=== PATIENT | female | born 1935 | race Hispanic/Latino ===

== ENCOUNTER 2017-07-21 18:14 | Inpatient (IN) | payer MEDICARE, MEDICAID ==
[2017-07-21] MEDS ORDERED: Ondansetron ODT 4 MG TAB PO PRN (19:48)
[2017-07-21] MEDS ORDERED: Acetaminophen 325 MG TAB PO PRN (19:48)
[2017-07-21] MEDS ORDERED: Sodium Chloride 0.9% 1,000 ML IV SCH (20:00)
[2017-07-21 21:12] LABS: #Eosinphils 0.3 thou/uL (0.0-0.7); #Lymphocytes 2.2 thou/uL (1.20-3.40); #Monocytes 0.6 thou/uL (0.11-0.59); #Neutrophils 6.5 thou/uL (1.40-6.50); %Basophils 0.4 % (0.0-1.0); %Eosinophils 2.9 % (0.0-10.0); %Lymphocytes 22.5 % (21.0-51.0); %Monocytes 6.4 % (0.0-10.0); Hematocrit 26.1 % (36.0-47.0); Mean Platelet Volume 7.2 fL (7.4-10.4); Red Blood Cell (RBC) Count 3.21 mill/uL (4.20-5.40); White Blood Cell (WBC) Count 9.6 thou/uL (4.8-10.8)
[2017-07-21 21:38] LABS: ALT (SGPT) 12 U/L (8-55); AST (SGOT) 19 U/L (5-34); Alkaline Phosphatase 92 U/L (40-150); Anion Gap 15 mmol/L (10-20); BUN (Urea Nitrogen) 33 mg/dL (9.8-20.1); Bilirubin, Total 0.2 mg/dL (0.2-1.2); Calc. Creatinine Clearance 34 mL/min (70-130); Calcium 9.1 mg/dL (7.8-10.44); Carbon Dioxide 19 mmol/L (23-31); Chloride 106 mmol/L (98-107); Estimated GFR-MDRD 47; Globulin 3.9 g/dL (2.4-3.5); Iron 29 ug/dL (50-170); Iron 31 ug/dL (50-170); Protein, Total 7.6 g/dL (6.0-8.3)
--- NOTE | 2017-07-21 22:05 | RAD ---
SINGLE VIEW OF THE ABDOMEN: Comparison: None. History: Acute GI bleed with abdominal tenderness. FINDINGS: Single view of the abdomen shows a nonspecific, nonobstructed bowel gas pattern. Air is seen in the rectum. No suspicious calcifications are present. IMPRESSION: Unremarkable exam. POS: [facility]
[2017-07-21] MEDS: Sodium Chloride 0.9% 1,000 ML IV SCH (22:56)
--- NOTE | 2017-07-22 05:17 | HP-2 ---
CODE STATUS: FULL. PRIMARY CARE PHYSICIAN: Dr. Anthony Galicia ATTENDING: Dr. Pili Plasencia RESIDENT: Candy Valerio D.O. HISTORIAN: Dkfqzcyz-qi-vye, daughter, and son. CHIEF COMPLAINT: Weakness, bleeding per rectum. HISTORY OF PRESENT ILLNESS: The patient is an 81-year-old female with past medical history of hyper tension and dementia who presented to the [facility] clinic for bright red blood per rectum for the past 1 -2 days. The patient is taken care of by her plhrjuoi-vd-gsd. Rratjlgt-jx-idq reports melena in th e past and passing blood clots as well. Per zknhsfde-yj-wup, the patient has seemed more weak over the last week. Never has had a colonoscopy. Family reports poor oral intake and weight loss of 30- 40 pounds over the past 2 years. PAST MEDICAL HISTORY: 1. Dementia. 2. Aortic sclerosis. 3. Hypertension. PAST SURGICAL HISTORY: 1. . 2. Bilateral cataract surgery. ALLERGIES: No known drug allergies. MEDICATIONS: 1. Lisinopril 5 mg daily. 2. Zoloft 25 mg daily. 3. Ultram 50 mg q.6 h. p.r.n. 4. Seroquel 50 mg at bedtime. 5. Acidophilus 100 mg daily. FAMILY HISTORY: Daughter from cervical, gastric and liver cancer. SOCIAL HISTORY: Denies tobacco, alcohol, and drug use. The patient lives with fxyjmmld-gv-xzs. REVIEW OF SYSTEMS: Review of system is limited due to the dementia. This is obtained by the dacaio er-in-law. GENERAL: Reports decreased weight and decreased appetite. No fever, chills, increased fatigue. RESPIRATORY: Does report recent cough this morning. CARDIOVASCULAR: Jwokoomb-ml-zrs denies the patient reporting chest pain. GI: Denies nausea, vomiting, diarrhea or constipation, last BM yesterday per azfxydbr-eh-kgx. : The patient is chronically incontinent. NEURO: Positive for generalized weakness. PHYSICAL EXAMINATION: VITAL SIGNS: Blood pressure 134/70, pulse 75, respiratory rate 16, T-max 98.4, pulse ox 100% on nini m air, current weight 55.39 kilograms. GENERAL: The patient is alert and oriented x2, no acute distress. She is confused, but at baseline per family. EYES: PERRLA, EOMI. ENT: Oropharynx within normal limits. Mucous membranes with pallor. CARDIOVASCULAR: Regular rate and rhythm with a chronic systolic murmur. Radial pulses 2+, pedal pu lses 2+. RESPIRATORY: Normal effort, no retractions. LUNGS: Clear to auscultation bilaterally. SKIN: Warm and dry without tenting. ABDOMEN: Soft. It is tender throughout, especially in the left upper quadrant. Hypoactive bowel s ounds throughout. EXTREMITIES: No clubbing, cyanosis or edema. MUSCULOSKELETAL: Structure within normal limits. NEUROLOGIC: No focal deficits. PSYCHIATRIC: Confused, but consistent with diagnosis of dementia. LABORATORY DATA: CBC, white blood cell count 9.6, hemoglobin 8.5, hematocrit 26.1, platelets 281, M CV 81.1. Chemistries: Sodium 136, potassium 4.2, chloride 106, CO2 19, BUN 33, creatinine 1.11, glucose 147, calcium 9.1, total protein 7.6, albumin 3.7, AST 19, ALT 12, alkaline phosphatase 92, total bilirub in 0.2. Iron studies: Iron 31, TIBC 265%, saturation is 12 and ferritin is pending. ASSESSMENT AND PLAN: 1. Gastrointestinal bleed, likely lower gastrointestinal bleed from history, but not sure. Protoni x ordered. Repeat CBC, CMP in the morning. Ferritin pending, the patient with abdominal tenderness . No concern for diverticulitis with normal white count, but will order a KUB to evaluate. FOBT po sitive in the clinic. Consult GI for possible colonoscopy. 2. Iron deficiency anemia secondary to #1. Vitals stable. Patient will need iron supplement. 3. Hypertension. Home medications. 4. Dementia with sundowners. We will give home Seroquel and sertraline. Son at bedside. We will keep windows open during the day. 5. Acute kidney injury. IV fluids. Repeat CMP in the morning. DISPOSITION/LENGTH OF HOSPITAL STAY: 2 days. Symptomatic medications will be provided. History and physical exam as well as management was discussed with Dr. Pili Plasencia.
[2017-07-22 06:07] LABS: #Eosinphils 0.4 thou/uL (0.0-0.7); #Monocytes 0.6 thou/uL (0.11-0.59); #Neutrophils 4.3 thou/uL (1.40-6.50); %Basophils 0.1 % (0.0-1.0); %Eosinophils 5.3 % (0.0-10.0); %Lymphocytes 27.7 % (21.0-51.0); %Monocytes 8.7 % (0.0-10.0); Hematocrit 21.4 % (36.0-47.0); Mean Platelet Volume 7.6 fL (7.4-10.4); Red Blood Cell (RBC) Count 2.63 mill/uL (4.20-5.40); White Blood Cell (WBC) Count 7.4 thou/uL (4.8-10.8)
[2017-07-22] MEDS: Sodium Chloride 0.9% 1,000 ML IV SCH (06:11)
[2017-07-22 06:36] LABS: ALT (SGPT) 8 U/L (8-55); AST (SGOT) 13 U/L (5-34); Alkaline Phosphatase 72 U/L (40-150); Anion Gap 13 mmol/L (10-20); BUN (Urea Nitrogen) 30 mg/dL (9.8-20.1); Bilirubin, Total 0.2 mg/dL (0.2-1.2); Calc. Creatinine Clearance 46 mL/min (70-130); Calcium 8.3 mg/dL (7.8-10.44); Carbon Dioxide 18 mmol/L (23-31); Chloride 112 mmol/L (98-107); Estimated GFR-MDRD 66; Protein, Total 5.9 g/dL (6.0-8.3)
[2017-07-22 06:53] LABS: Bilirubin Negative (Negative); Blood, Urine Negative (Negative); Glucose, Urine (Dipstick) Negative (Negative); Ketone, Urine Negative (Negative); Nitrite Negative (Negative); Protein, Urine (Dipstick) Negative (Neg-Trace); Urobilinogen 0.2 mg/dL (0.2-1.0)
--- NOTE | 2017-07-22 08:35 | PDOC.FM ---
Addendum entered and electronically signed by Phil Cody MD 07/22/17 08:42 : On protonix as well for GI bleed Original Note: - Subjective Subjective: Pt confused this morning. Unable to respond to questions at this time. Pt did not answer family who asked in eritrean. Cooperative to physical exam - Objective MAR Reviewed: Yes Vital Signs & Weight: Vital Signs (12 hours) Temp Pulse Resp BP Pulse Ox 07/22/17 05:00 98.0 F 64 16 109/62 98 Weight Weight 55.395 kg I&O: 07/21/17 07/22/17 07/23/17 06:59 06:59 06:59 Intake Total 1320 Output Total 100 Balance 1220 Result Diagrams: 07/22/17 04:57 07/22/17 04:57 Additional Labs: Laboratory Tests 07/21/17 07/21/17 21:05 21:05 Iron 31 L TIBC 265 % Saturation 12 L Ferritin 28.43 Radiology Reviewed by me: Yes Radiology: Abdominal X-ray: unremarkable <Phil Cody - Last Filed: 07/22/17 08:33> - Objective Vital Signs & Weight: Vital Signs (12 hours) Temp Pulse Resp BP Pulse Ox 07/22/17 08:00 98.6 F 62 16 132/67 99 07/22/17 05:00 98.0 F 64 16 109/62 98 Weight Weight 55.395 kg I&O: 07/21/17 07/22/17 07/23/17 06:59 06:59 06:59 Intake Total 1320 Output Total 100 Balance 1220 Result Diagrams: 07/22/17 08:36 07/22/17 04:57 <Giovany Vargas - Last Filed: 07/22/17 10:15> Phys Exam - Physical Examination HEENT: oral pharynx no lesions MM a little dry an pale Neck: no nodes, no JVD, supple Respiratory: no wheezing, no rales, no rhonchi, clear to auscultation bilateral Cardiovascular: RRR, no rub Systolic murmur noted Gastrointestinal: soft, non-tender, no distention, positive bowel sounds Musculoskeletal: no edema, pulses present Psychiatric: normal affect Deviation from normal: Pt does not seem oriented at this time Skin: cap refill <2 seconds Deviation from normal: Pt does seem a little pale. <Phil Cody - Last Filed: 07/22/17 08:33> Dx/Plan (1) GI bleed Code(s): K92.2 - GASTROINTESTINAL HEMORRHAGE, UNSPECIFIED Status: Acute (2) Iron deficiency anemia Code(s): D50.9 - IRON DEFICIENCY ANEMIA, UNSPECIFIED Status: Acute (3) Dementia Code(s): F03.90 - UNSPECIFIED DEMENTIA WITHOUT BEHAVIORAL DISTURBANCE Status: Acute (4) HTN (hypertension) Code(s): I10 - ESSENTIAL (PRIMARY) HYPERTENSION Status: Chronic (5) MARGARITA (acute kidney injury) Code(s): N17.9 - ACUTE KIDNEY FAILURE, UNSPECIFIED Status: Resolved - Plan Plan: GI Bleed -Consult GI this morning -Hgb 7. Will type and cross and transfuse 1 unit -Will recheck h&h after transfusion and continue to monitor -NS @ 100 mls/hr Iron Deficiency Anemia -Hgb 7 likely 2/2 to problem above -Ferritin low normal. -Will supplement with iron at this time. -Plan as above Dementia -continue home meds HTN -held lisinopril. BP a little low likely due to above MARGARITA -Resolved as of now -NS@100 mls/hr <Phil Cody - Last Filed: 07/22/17 08:33> Attending Addendum - Attending Addendum I personally evaluated the patient and discussed the management with Dr. Cody I agree with the History, Examination, Assessment and Plan documented above with any addition or exceptions noted below. Consult gastroenterology, await recommendations. Transfuse 1 U PRBCs, trend H&H and continue iron supplementation. <Giovany Vargas - Last Filed: 07/22/17 10:15>
[2017-07-22 08:46] LABS: Hematocrit 22.2 % (36.0-47.0)
[2017-07-22] MEDS ORDERED: Lisinopril 5 MG TAB PO SCH (09:00)
[2017-07-22] MEDS: Pantoprazole 40 MG VIAL IVP SCH ×2 (09:29→19:53)
[2017-07-22] MEDS ORDERED: Docusate 100 MG CAP PO PRN (10:17)
[2017-07-22] MEDS: Sodium Chloride 0.45% 1,000 ML IV SCH ×2 (11:02→19:44)
[2017-07-22 16:07] LABS: Hematocrit 26.3 % (36.0-47.0)
[2017-07-22] MEDS: Ferrous Sulfate 325 MG TAB PO SCH (17:03)
[2017-07-22] MEDS ORDERED: GoLYTELY 4,000 ml Bottle PO SCH (18:00)
--- NOTE | 2017-07-22 19:34 | CON ---
GI INPATIENT CONSULTATION NOTE DATE OF CONSULTATION: 07/22/2017 REQUESTING PHYSICIAN: Dr. Cody. REASON FOR CONSULTATION: GI bleeding. HISTORY OF PRESENT ILLNESS: Ms. Elsy Marinelli is an 81-year-old woman who speaks Cambodian only. Her d aughter translates for us. She has a history of Alzheimer dementia and hypertension as well as aort ic sclerosis. She is not on any blood thinning medicine. She has never undergone esophagogastroduo denoscopy or colonoscopy and has no prior gastrointestinal history. She was brought to the hospital and admitted last night with report of new GI bleeding for the past 2 days. She lives with her son and evidently the report was that she was passing very dark, almost black blood intermittently for a couple of days. I see other reports that there was bright red blood. The patient herself cannot tell me and either can her daughter who was here. At any rate, this has evidently been painless. T he patient has not been complaining of any abdominal pain. Her appetite has been okay. There has b een no nausea or vomiting. She has been acting a bit fatigued lately and she has been noted to have a weight loss of 30-40 pounds in the past couple of years. Upon presentation, she was found to hav e anemia with hemoglobin of 8.5 and this actually dropped to 7.2 this morning. She has never receiv ed one unit of RBC transfusion. She is hemodynamically stable. I note the hemoglobin was 11.4 back in 11/2016. The patient is currently asymptomatic. FOBT was positive as expected. Iron studies s howed mild iron deficiency. REVIEW OF SYSTEMS: Full review of systems including constitutional, head, eyes, ears, nose, throat, GI, , cardiovascular, respiratory, musculoskeletal and neurologic systems is negative except as n oted in the HPI. PAST MEDICAL AND SURGICAL HISTORY: Dementia, hypertension, aortic sclerosis, and cataract surgery bilaterally. ALLERGIES: No known drug allergies. OUTPATIENT MEDICATIONS: Lisinopril, Zoloft, Ultram, Seroquel and acidophilus. INPATIENT MEDICATIONS: Seroquel, Zoloft and Protonix 40 mg IV q.12 hours. FAMILY HISTORY: She has a daughter with cervical gastric and liver cancer. SOCIAL HISTORY: No smoking, alcohol or drug use. PHYSICAL EXAMINATION: VITAL SIGNS: Temperature 98.6, pulse 62, blood pressure 132/67 and 99% oxygen saturation on room ai r. GENERAL: An 81-year-old woman sitting up in bed comfortably in no distress. MENTAL: She is confused. She can answer questions yes or no, but cannot give any details on her hi story. SKIN: A bit pale. No jaundice, no rash visible or palpable. EYES: No scleral icterus. Extraocular movements are intact. ENT: Mucous membranes are moist. No oral lesions. LYMPH: No submandibular or supraclavicular lymphadenopathy. THYROID: Nontender to palpation. HEART: Regular rate and rhythm. LUNGS: Clear to auscultation bilaterally. ABDOMEN: Bowel sounds are present, soft and nontender to palpation throughout. EXTREMITIES: No peripheral edema. LABORATORY STUDIES: BUN is up to 30 with creatinine only 0.83. Hemoglobin 7.2 down from 8.5 on adm ission, down from 11.4 last November. WBC is 7.4 and platelets 215. FOBT is positive. Iron 31, TIB C is 265, ferritin 28.4. Twelve percent iron saturation, total bilirubin 0.2, alkaline phosphatase 72, AST 13, ALT 8, albumin 2.9 arteries a FOBT is positive. IMAGING STUDIES: Abdominal x-ray was normal. ASSESSMENT AND PLAN: 1. Acute gastrointestinal bleeding. 2. Acute blood loss anemia. 3. Iron deficiency. From the history alone, it is difficult to tell whether this is coming from an upper or lower gastrointestinal source. Some reports say there was bright red blood, others appear ed like melena. I note the elevated BUN to creatinine ratio, but she is hemodynamically stable. Ag ree with Protonix IV for now, monitor hemoglobin and hematocrit and transfuse as necessary. We will plan for esophagogastroduodenoscopy and colonoscopy tomorrow for further investigation. Please caleb l back in the meantime with any questions or concerns.
[2017-07-22 23:02] LABS: Hematocrit 27.9 % (36.0-47.0); Mean Platelet Volume 7.2 fL (7.4-10.4); Red Blood Cell (RBC) Count 3.32 mill/uL (4.20-5.40)
[2017-07-23 05:30] LABS: #Basophils 0.1 thou/uL (0.0-0.2); #Eosinphils 0.3 thou/uL (0.0-0.7); #Lymphocytes 1.9 thou/uL (1.20-3.40); #Monocytes 0.5 thou/uL (0.11-0.59); #Neutrophils 3.9 thou/uL (1.40-6.50); %Eosinophils 3.9 % (0.0-10.0); %Lymphocytes 29.1 % (21.0-51.0); %Monocytes 7.5 % (0.0-10.0); Hematocrit 27.4 % (36.0-47.0); Mean Platelet Volume 7.6 fL (7.4-10.4); Red Blood Cell (RBC) Count 3.25 mill/uL (4.20-5.40); White Blood Cell (WBC) Count 6.6 thou/uL (4.8-10.8)
[2017-07-23 05:57] LABS: ALT (SGPT) 9 U/L (8-55); AST (SGOT) 21 U/L (5-34); Alkaline Phosphatase 82 U/L (40-150); Anion Gap 13 mmol/L (10-20); BUN (Urea Nitrogen) 18 mg/dL (9.8-20.1); Bilirubin, Total 0.3 mg/dL (0.2-1.2); Calc. Creatinine Clearance 50 mL/min (70-130); Calcium 8.5 mg/dL (7.8-10.44); Carbon Dioxide 19 mmol/L (23-31); Chloride 111 mmol/L (98-107); Estimated GFR-MDRD 73; Globulin 3.3 g/dL (2.4-3.5); Protein, Total 6.4 g/dL (6.0-8.3)
--- NOTE | 2017-07-23 06:14 | PDOC.FM ---
- Subjective Subjective: Pt tired this morning as up all night with bowel prep. She did not answer questions this morning. Has dementia. Daughter states no other problems over night except the constant flow of bowel movement due to GI prep. States patient had no other complaints overnight. - Objective MAR Reviewed: Yes Vital Signs & Weight: Vital Signs (12 hours) Temp Pulse Resp BP Pulse Ox 07/22/17 21:36 97.9 F 65 16 152/93 H 100 07/22/17 20:00 98.5 F 70 18 Weight Admit Weight 55.338 kg Weight 55.338 kg I&O: 07/21/17 07/22/17 07/23/17 06:59 06:59 06:59 Intake Total 1320 950 Output Total 100 Balance 1220 950 Result Diagrams: 07/23/17 04:17 07/23/17 04:17 Radiology Reviewed by me: Yes Radiology: Abdominal X-ray: Unremarkable <Phil Cody - Last Filed: 07/23/17 09:47> - Objective Vital Signs & Weight: Vital Signs (12 hours) Temp Pulse Resp BP Pulse Ox 07/23/17 07:35 98.6 F 65 16 149/77 H 99 Weight Admit Weight 55.338 kg Weight 55.338 kg I&O: 07/22/17 07/23/17 07/24/17 06:59 06:59 06:59 Intake Total 1320 950 Output Total 100 Balance 1220 950 Result Diagrams: 07/23/17 04:17 07/23/17 04:17 <Giovany Vargas - Last Filed: 07/23/17 10:12> Phys Exam - Physical Examination HEENT: oral pharynx no lesions Neck: no nodes, no JVD, supple Respiratory: no wheezing, no rales, no rhonchi, clear to auscultation bilateral Cardiovascular: RRR, no rub systolic murmur noted Gastrointestinal: soft, non-tender, no distention, positive bowel sounds Musculoskeletal: no edema, pulses present Psychiatric: normal affect Deviation from normal: Not oriented to place or date Skin: no rash, normal turgor, cap refill <2 seconds <Phil Cody - Last Filed: 07/23/17 09:47> Dx/Plan (1) GI bleed Code(s): K92.2 - GASTROINTESTINAL HEMORRHAGE, UNSPECIFIED Status: Acute (2) Iron deficiency anemia Code(s): D50.9 - IRON DEFICIENCY ANEMIA, UNSPECIFIED Status: Acute (3) Dementia Code(s): F03.90 - UNSPECIFIED DEMENTIA WITHOUT BEHAVIORAL DISTURBANCE Status: Acute (4) HTN (hypertension) Code(s): I10 - ESSENTIAL (PRIMARY) HYPERTENSION Status: Chronic (5) MARGARITA (acute kidney injury) Code(s): N17.9 - ACUTE KIDNEY FAILURE, UNSPECIFIED Status: Resolved - Plan Plan: GI Bleed -GI Dr. Charles- appreciate recs. Plan for EGD/colonoscopy today -Hgb 9.0. Continue to monitor. Tranfused 1 unit 07/22 -NS @ 100 mls/hr Iron Deficiency Anemia -Hgb 9.0 likely /2 to problem above -Ferritin low normal. -Will supplement with iron at this time. -Plan as above Dementia -continue home meds HTN -held lisinopril. BP improved today. will continue to hold lisinopril pending results of scopes MARGARITA -Resolved as of now -NS@100 mls/hr <Phil Cody - Last Filed: 07/23/17 09:47> Attending Addendum - Attending Addendum I personally evaluated the patient and discussed the management with Dr. Cody I agree with the History, Examination, Assessment and Plan documented above with any addition or exceptions noted below. H&H improved from 7 to 9 [address] Charles consulted yesterday , and recommends colonoscopy and EGD today. Will await recommendations. Once tolerating PO will need to start iron and colace. F/u with CBC in am. <Giovany Vargas - Last Filed: 07/23/17 10:12>
[2017-07-23] MEDS: Pantoprazole 40 MG VIAL IVP SCH ×2 (09:10→20:49)
[2017-07-23] MEDS: Sodium Chloride 0.45% 1,000 ML IV SCH ×2 (09:11→23:05)
[2017-07-23] MEDS: Ferrous Sulfate 325 MG TAB PO SCH ×2 (09:41→18:34)
[2017-07-23] MEDS ORDERED: Propofol 200 MG/20 ML VIAL ONE (16:53)
[2017-07-23] MEDS ORDERED: Lidocaine 1% PF 5 ML VIAL ONE (16:53)
[2017-07-23] MEDS ORDERED: Ondansetron HCl/PF 4 MG/2 ML Vial IVP PRN (17:21)
[2017-07-23] MEDS ORDERED: Promethazine HCl 25 MG/ML VIAL IM PRN (17:21)
[2017-07-23] MEDS ORDERED: Promethazine HCl 25 MG/ML VIAL SLOW IVP PRN (17:21)
[2017-07-23] MEDS ORDERED: Erythromycin Base 250 MG TAB PO SCH ×2 (20:30→22:30)
[2017-07-23] MEDS ORDERED: Neomycin 500 mg Tablet PO SCH ×2 (20:30→22:30)
--- NOTE | 2017-07-23 20:39 | OP ---
PREOPERATIVE DIAGNOSIS: Anemia secondary to gastrointestinal blood loss. DESCRIPTION OF PROCEDURE: After informed consent was obtained, the patient was placed in the left l ateral decubitus position. Anesthesia was administered per the Anesthesia Department. Forward-view ing endoscope was inserted into the esophagus under direct visualization with ease and passed to the second portion of the duodenum with ease. Second portion of the duodenum and duodenal bulb were no rmal. The pylorus, antrum, body, fundus, and cardia were normal. Retroflexion in the stomach was n ormal. Esophagus was normal throughout. ASSESSMENT: Normal esophagogastroduodenoscopy. RECOMMENDATION: Proceed with colonoscopy. PROCEDURE IN DETAIL: After informed consent was obtained, the patient was placed in the left latera l decubitus position. Anesthesia was administered per the Anesthesia Department. Forward-viewing e ndoscope was inserted into the rectum after perianal inspection and rectal exam were normal and pass ed to the cecum with ease. The cecum showed a fungating mass. This mass was biopsied in multiple a reas. The mass was passed with the endoscope and into the ileum. The remainder of the cecum was no rmal. The ascending was normal except for 2 small colon polyps. These were removed with hot snare. The left side showed diverticulosis coli. ASSESSMENT: 1. Cecal mass -- status post biopsy. 2. Two small ascending colon polyps -- status post polypectomy. 3. Left-sided diverticulosis coli. 4. Otherwise normal colonoscopy. RECOMMENDATIONS: 1. Await histopathology. 2. CEA level. 3. Surgical opinion. 4. CT scan.
--- NOTE | 2017-07-24 02:12 | CON ---
DATE OF CONSULTATION: 07/23/2017 CONSULTING PHYSICIAN: Dr. Johnny Escoto. REASON FOR CONSULTATION: Right colon mass. HISTORY OF PRESENT ILLNESS: Patient is an 81-year-old female. She speaks only Malay. E xamination is conducted both in Malay with the patient and in Nigerien with the patient's family. She has a history of Alzheimer's dementia and therefore most of the conversation was held with her s on, who is her guardian and wrfzhgng-af-nlj with whom she lives. Patient was admitted to the hospital on 07/21/2017 (2 days ago) with history of blood per rectum. U enzo admission, she was found to be anemic with hemoglobin of 8.5, which dropped down to 7.0 after hy dration. She was transfused with 1 unit of packed red blood cell. Her hemoglobin has risen to 9.0 today. She underwent colonoscopy earlier today revealing an ulcerative right colon mass consistent with the colon cancer. CEA level and CT scan are pending. PAST MEDICAL HISTORY: 1. Dementia. 2. Hypertension. 3. Aortic sclerosis. 4. Fibula fracture in November of this year. PAST SURGICAL HISTORY: 1. . 2. Cataract surgery. ALLERGIES: No known drug allergies. PRIMARY CARE PHYSICIAN: Dr. Galicia ([facility]). MEDICATIONS: Lisinopril, Zoloft, Ultram, Seroquel. ALLERGIES: No known drug allergies. PRESENT SOCIAL HISTORY: She is . She has 9 children. She lives with one of her sons. She has no history of smoking or alcohol use. REVIEW OF SYSTEMS: Otherwise, unremarkable. FAMILY HISTORY: Noncontributory. PHYSICAL EXAMINATION: VITAL SIGNS: She is afebrile, pulse 65, blood pressure 164/64. GENERAL: She is a thin, elderly female, who is resting comfortably in her room with multip le family members around. She is alert and answers questions. She does know that I am a doctor and knows her approximate age, but she does have a history of significant dementia nonetheless. HEAD, EYES, EARS, NOSE, AND THROAT: Unremarkable. NECK: Supple, without mass or tenderness. LUNGS: Clear to auscultation anteriorly. CARDIAC: Regular rate and rhythm. There is an audible systolic ejection murmur. LUNGS: Clear to auscultation bilaterally. ABDOMEN: Soft, nontender, nondistended. She has got a well healed low midline abdominal incision. There is no dominant palpable mass or focal tenderness anywhere in her abdomen. There is no hepato megaly. EXTREMITIES: Unremarkable. ASSESSMENT: Patient with anemia secondary to lower gastrointestinal bleed related to a right colon mass that is presumably a right colon cancer. PLAN: Since she underwent a bowel prep and has already had a colonoscopy, we can proceed with a lap aroscopic right hemicolectomy tomorrow to eliminate the necessity for repeat bowel preparation. CT scan will be obtained this evening, CEA level and repeat laboratory studies will be obtained tomorro w morning. I have discussed the operation in detail with the patient's family. They all understand and agreed to proceed with surgery at this time.
[2017-07-24 05:01] LABS: #Eosinphils 0.2 thou/uL (0.0-0.7); #Lymphocytes 1.3 thou/uL (1.20-3.40); #Monocytes 0.4 thou/uL (0.11-0.59); #Neutrophils 4.6 thou/uL (1.40-6.50); %Basophils 0.5 % (0.0-1.0); %Eosinophils 2.7 % (0.0-10.0); %Monocytes 6.2 % (0.0-10.0); Hematocrit 29.2 % (36.0-47.0); Mean Platelet Volume 7.5 fL (7.4-10.4); Red Blood Cell (RBC) Count 3.41 mill/uL (4.20-5.40); White Blood Cell (WBC) Count 6.5 thou/uL (4.8-10.8)
[2017-07-24 05:09] LABS: Hemoglobin A1c 5.3 % (4.0-6.0)
[2017-07-24] MEDS: Sodium Chloride 0.45% 1,000 ML IV SCH ×2 (06:37→09:12)
[2017-07-24] MEDS ORDERED: Midazolam HCl 2 mg/2 ml Vial ONE (06:37)
[2017-07-24] MEDS ORDERED: Dexamethasone 4 mg/ml Vial ONE (06:37)
[2017-07-24] MEDS ORDERED: Fentanyl 100 MCG/2 ML VIAL ONE ×2 (06:37→07:20)
[2017-07-24] MEDS ORDERED: Bupivacaine HCl 0.5%/Epinephrine 1:200,000/PF 30 ml Vial ONE (06:54)
[2017-07-24] MEDS ORDERED: ePHEDrine/0.9% NaCl/PF SYRINGE 50 mg/10 ml ONE (07:47)
[2017-07-24] MEDS ORDERED: Glycopyrrolate 0.2 MG/ML 5 ML SYRINGE ONE (07:47)
[2017-07-24] MEDS ORDERED: Propofol 200 MG/20 ML VIAL ONE (07:47)
[2017-07-24] MEDS ORDERED: Ondansetron HCl/PF 4 MG/2 ML Vial ONE (07:47)
[2017-07-24] MEDS ORDERED: PHENYLEPHRINE-NS 100 MCG/ML 10 ML SYRINGE ONE (07:47)
[2017-07-24] MEDS ORDERED: Lidocaine 1% w/Epinephrine 1:200K 30 ML VIAL ONE (07:59)
--- NOTE | 2017-07-24 08:45 | CT ---
PRELIMINARY REPORT/[facility]/EMERGENCY AFTER HOURS PROCEDURE: EXAM: CT Abdomen and Pelvis With Intravenous Contrast EXAM DATE/TIME: Exam ordered 07/24/2017 2:34 AM CLINICAL HISTORY: 81 years old, female; Condition or disease; Cancer; Intestine, large; Patient HX: Evaluate right col on cancer TECHNIQUE: Axial computed tomography images of the abdomen and pelvis with intravenous contrast. Coronal reformatted images were created and reviewed. CONTRAST: 60 mL of ISOVUE administered intravenously. COMPARISON: No relevant prior studies available. FINDINGS: Lower thorax: No acute findings. ABDOMEN: Liver: Unremarkable. No mass. Gallbladder and bile ducts: Unremarkable. No calcified stones. No ductal dilation. Pancreas: Unremarkable. No mass. No ductal dilation. Spleen: Unremarkable. No splenomegaly. Adrenals: Unremarkable. No mass. Kidneys and ureters: Unremarkable. No solid mass. No hydronephrosis. Stomach and bowel: 7 cm complex cecal mass consistent with reported history of colon cancer. Internal intermediate density component may be necrotic tumor. Concomitant/superimposed abscess cannot be excluded. No intestinal obstruction. No mucosal thickening. Appendix: Appendix not visualized. PELVIS: Bladder: Unremarkable. No mass. Reproductive: Unremarkable as visualized. ABDOMEN and PELVIS: Intraperitoneal space: Unremarkable. No free air. No significant fluid collection. Bones/joints: No acute fracture. No dislocation. Soft tissues: Unremarkable. Vasculature: Unremarkable. No abdominal aortic aneurysm. Lymph nodes: Unremarkable. No enlarged lymph nodes. IMPRESSION: 7 cm complex cecal mass consistent with reported history of colon cancer. Internal intermediate dens ity component may be necrotic tumor. Concomitant/superimposed abscess cannot be excluded. Thank you for allowing us to participate in the care of your patient. Dictated and Authenticated by: Prasad Cuello MD 07/24/2017 3:03 AM Central Time ([place] \T\ [place]) FINAL REPORT CT ABDOMEN AND PELVIS: Agree with the preliminary report provided. There is a large mixed density cecal mass measuring 7.5 x 6.7 cm. There is concern that there is mass extension beyond the serosal margin of the cecum on image 46 of series 2. There is reticulation of the surrounding retroperitoneal fat within this loca tion. There is an enlarged right ileocecal lymph node measuring 7 mm. No retroperitoneal lymphaden opathy is evident. The visualized liver, spleen, pancreas, and adrenal glands appear within normal limits. There are b ilateral renal cysts. There are vascular calcifications involving the abdominopelvic vasculature. The bladder is decompre ssed. There is scattered colonic diverticula. Lung bases are clear. No acute osseous abnormality is evident. There is scattered degenerative change. IMPRESSION: Prominent cecal mass with suspicion for extraserosal spread of tumor beyond the margins of the cecal wall best noted on image 46 of series 2. There are mildly prominent right lower quadrant ileocecal mesenteric lymph nodes. No additional evidence of regional spread of disease to the abdomen and pe lvis. POS: [facility]
[2017-07-24 08:54] LABS: Anion Gap 19 mmol/L (10-20); BUN (Urea Nitrogen) 11 mg/dL (9.8-20.1); Calc. Creatinine Clearance 49 mL/min (70-130); Calcium 8.5 mg/dL (7.8-10.44); Carbon Dioxide 13 mmol/L (23-31); Chloride 108 mmol/L (98-107); Estimated GFR-MDRD 72
--- NOTE | 2017-07-24 09:07 | PDOC.FM ---
- Subjective Subjective: Did not see patient this morning. Patient likely down in preop for surgery today. will have to check on her later when she comes back to room. Family not in the room either at this time. Just went and saw patient post op in the PACU around 1600. She was doing well. Pain being well controlled. She had family and was conversing with them. Did not state any concerns at this time. - Objective MAR Reviewed: Yes Vital Signs & Weight: Vital Signs (12 hours) Temp Pulse Resp BP Pulse Ox 07/24/17 04:00 98.4 F 68 18 131/54 L 100 Weight Admit Weight 55.338 kg Weight 55.338 kg I&O: 07/23/17 07/24/17 07/25/17 06:59 06:59 06:59 Intake Total 950 1800 Output Total 1100 Balance 950 700 Result Diagrams: 07/24/17 04:47 07/24/17 04:47 Radiology Reviewed by me: Yes Radiology: CT Abdo/Pelvis: 7 cm complex cecal mass consistent w/ reported hx of colon cancer. Internal intermediate density component may be necrotic tumor. Concomitant/superimposed abscess cannot be excluded Lower thorax- no acute findings <Phil Cody - Last Filed: 07/24/17 18:14> - Objective Vital Signs & Weight: Vital Signs (12 hours) Temp Pulse Resp BP Pulse Ox 07/25/17 04:00 97.9 F 61 18 114/41 L 96 07/25/17 00:00 98.0 F 61 16 127/44 L 97 Weight Admit Weight 55.338 kg Weight 56.472 kg I&O: 07/24/17 07/25/17 07/26/17 06:59 06:59 06:59 Intake Total 1800 468 Output Total 1100 675 Balance 700 -207 Result Diagrams: 07/25/17 05:22 07/25/17 05:22 <Pili Plasencia - Last Filed: 07/25/17 08:09> Phys Exam - Physical Examination HEENT: moist MMs, oral pharynx no lesions Neck: no nodes, no JVD, supple Respiratory: no wheezing, no rales, no rhonchi, clear to auscultation bilateral Cardiovascular: RRR, no rub systoliic murmur noted Gastrointestinal: no distention, positive bowel sounds wound sites clean and intact. No redness or drainage noted. Musculoskeletal: no edema Neurological: non-focal Psychiatric: normal affect Skin: no rash <Phil Cody - Last Filed: 07/24/17 18:14> Dx/Plan (1) Colon cancer Code(s): C18.9 - MALIGNANT NEOPLASM OF COLON, UNSPECIFIED Status: Suspected (2) GI bleed Code(s): K92.2 - GASTROINTESTINAL HEMORRHAGE, UNSPECIFIED Status: Acute (3) Iron deficiency anemia Code(s): D50.9 - IRON DEFICIENCY ANEMIA, UNSPECIFIED Status: Acute (4) Dementia Code(s): F03.90 - UNSPECIFIED DEMENTIA WITHOUT BEHAVIORAL DISTURBANCE Status: Acute (5) HTN (hypertension) Code(s): I10 - ESSENTIAL (PRIMARY) HYPERTENSION Status: Chronic (6) MARGARITA (acute kidney injury) Code(s): N17.9 - ACUTE KIDNEY FAILURE, UNSPECIFIED Status: Resolved - Plan Plan: Suspected Colon cancer -Awaiting bx of cecal mass path reports -CT abdo/pelvis: 7 cm complex cecal mass consistent w/ reported hx of colon cancer -Post op R. hemicolectomy -General Surgery Consulted- Dr. Gresham- appreciate recs GI Bleed -GI Dr. Charles- appreciate recs. EGD: normal Colonoscopy: cecal mass, awaiting bx. 2 ascending polyps, awaiting bx path -General Surgery- Dr. Gresham -Hgb 9.3. Continue to monitor. Tranfused 1 unit 07/22 -NS @ 100 mls/hr Iron Deficiency Anemia -Hgb 9.3 likely 2/2 to problem above -Ferritin low normal. -Will supplement with iron at this time. -Plan as above Dementia -continue home meds HTN -held lisinopril. BP a little elevated. -Will continue to hold due to surgery today. MARGARITA -Resolved as of now <Phil Cody - Last Filed: 07/24/17 18:14> Attending Addendum - Attending Addendum I personally evaluated the patient and discussed the management with Dr. Cody on 07/24/2017 I agree with the History, Examination, Assessment and Plan documented above with any addition or exceptions noted below- Patient awake/alert; denies any complaints. Afebrile VSS. 1) POD#0 s/p lap rigth hemicolectomy for cecal mass- continue care as per surgery. 2) Cecal mass- await pathology, 3) GI bleed- H/h stable; contonue to monitor. <Pili Plasencia - Last Filed: 07/25/17 08:09>
[2017-07-24] MEDS: Ferrous Sulfate 325 MG TAB PO SCH ×2 (09:12→18:42)
[2017-07-24] MEDS ORDERED: Ondansetron HCl/PF 4 MG/2 ML Vial IVP PRN ×2 (10:35→17:52)
[2017-07-24] MEDS ORDERED: Promethazine HCl 25 MG/ML VIAL SLOW IVP PRN (10:35)
[2017-07-24] MEDS ORDERED: Promethazine HCl 25 MG/ML VIAL IM PRN ×2 (10:35→17:52)
[2017-07-24] MEDS ORDERED: Insulin Regular 100 UNITS in Sodium Chloride 0.9% 100 ML IVPB SCH (11:15)
[2017-07-24] MEDS ORDERED: Dextrose 50% Abboject 50 ML SYRINGE IVP PRN (11:28)
[2017-07-24] MEDS ORDERED: Insulin Regular 100 units/100 ml in NS IVPB SCH (11:30)
[2017-07-24] MEDS ORDERED: Insulin Regular 300 UNITS/3 ML VIAL ONE (11:33)
[2017-07-24] MEDS ORDERED: Famotidine/PF 20 mg/2ml Vial ONE (14:47)
[2017-07-24] MEDS ORDERED: Ketorolac Tromethamine 30 MG/ML VIAL ONE (14:47)
[2017-07-24] MEDS ORDERED: Morphine Sulfate 2 MG/ML SYRINGE ONE (14:53)
[2017-07-24] MEDS: Pantoprazole 40 MG VIAL IVP SCH ×2 (16:37→21:17)
[2017-07-24] MEDS ORDERED: Dextrose 5% in Water 1,000 ML IV PRN (17:52)
[2017-07-24] MEDS ORDERED: Morphine Sulfate 2 MG/ML SYRINGE SLOW IVP PRN (17:52)
[2017-07-24] MEDS ORDERED: Dextrose 50% Abboject 50 ML SYRINGE SLOW IVP PRN (17:52)
[2017-07-24] MEDS: Famotidine 20 MG TAB PO SCH ×2 (18:24→21:17)
[2017-07-24] MEDS: Famotidine/PF 20 mg/2ml Vial SLOW IVP SCH ×2 (18:35→21:17)
[2017-07-24] MEDS: Acetaminophen 1,000 MG in Premix Bag 1 BAG IVPB SCH ×2 (18:35→23:41)
[2017-07-24] MEDS: Ketorolac Tromethamine 30 MG/ML VIAL IVP SCH (21:16)
[2017-07-24] MEDS: Enoxaparin Sodium 40 MG/0.4 ML SYRINGE SC SCH (21:18)
[2017-07-24 22:11] LABS: Hematocrit 26.7 % (36.0-47.0); Mean Platelet Volume 7.3 fL (7.4-10.4); Red Blood Cell (RBC) Count 3.18 mill/uL (4.20-5.40); White Blood Cell (WBC) Count 10.2 thou/uL (4.8-10.8)
[2017-07-25] MEDS: cefOXitin Sodium 1 GM in Sodium Chloride 0.9% 100 ML IVPB SCH ×2 (01:00→09:39)
[2017-07-25] MEDS: Ketorolac Tromethamine 30 MG/ML VIAL IVP SCH ×4 (03:23→20:43)
[2017-07-25] MEDS: Acetaminophen 1,000 MG in Premix Bag 1 BAG IVPB SCH ×3 (05:41→17:38)
[2017-07-25 06:15] LABS: #Lymphocytes 1.1 thou/uL (1.20-3.40); #Monocytes 0.5 thou/uL (0.11-0.59); #Neutrophils 9.8 thou/uL (1.40-6.50); %Eosinophils 0.1 % (0.0-10.0); %Lymphocytes 9.5 % (21.0-51.0); Hematocrit 25.3 % (36.0-47.0); Mean Platelet Volume 7.7 fL (7.4-10.4); Red Blood Cell (RBC) Count 2.99 mill/uL (4.20-5.40); White Blood Cell (WBC) Count 11.4 thou/uL (4.8-10.8)
[2017-07-25 06:43] LABS: Anion Gap 14 mmol/L (10-20); BUN (Urea Nitrogen) 13 mg/dL (9.8-20.1); Calc. Creatinine Clearance 38 mL/min (70-130); Calcium 8.4 mg/dL (7.8-10.44); Carbon Dioxide 19 mmol/L (23-31); Chloride 108 mmol/L (98-107); Estimated GFR-MDRD 52
--- NOTE | 2017-07-25 08:48 | PDOC.FM ---
- Subjective Subjective: Pt resting when entering the room. Pt denied any pain. Pain being well controlled. Daughter in law in the room and states no problems overnight. Did not have any problems or conerns this morning. Pt has dementia and did not answer questions this morning. Did not look to be in acute distress. - Objective MAR Reviewed: Yes Vital Signs & Weight: Vital Signs (12 hours) Temp Pulse Resp BP Pulse Ox 07/25/17 08:00 97.4 F L 69 16 122/43 L 97 07/25/17 04:00 97.9 F 61 18 114/41 L 96 07/25/17 00:00 98.0 F 61 16 127/44 L 97 Weight Admit Weight 55.338 kg Weight 56.472 kg I&O: 07/24/17 07/25/17 07/26/17 06:59 06:59 06:59 Intake Total 1800 468 Output Total 1100 675 Balance 700 -207 Result Diagrams: 07/25/17 05:22 07/25/17 05:22 Radiology Reviewed by me: Yes Radiology: CTA 07/23: 7 cm complex cecal mass w/ suspicion for extraserosal spread of tumor beyond the margins of cecal wall. Mildly prominent R. lower quad ileocecal mesenteric lymph nodes. No other evidence of spread. Abdo Xray 07/21: unremarkable <Phil Cody - Last Filed: 07/25/17 08:46> - Objective Vital Signs & Weight: Vital Signs (12 hours) Temp Pulse Resp BP Pulse Ox 07/25/17 08:00 97.4 F L 69 16 122/43 L 97 07/25/17 04:00 97.9 F 61 18 114/41 L 96 07/25/17 00:00 98.0 F 61 16 127/44 L 97 Weight Admit Weight 55.338 kg Weight 56.472 kg I&O: 07/24/17 07/25/17 07/26/17 06:59 06:59 06:59 Intake Total 1800 468 Output Total 1100 675 Balance 700 -207 Result Diagrams: 07/25/17 05:22 07/25/17 05:22 <Giovany Vargas - Last Filed: 07/25/17 10:00> Phys Exam - Physical Examination HEENT: PERRLA, moist MMs, oral pharynx no lesions Neck: no nodes, no JVD, supple, full ROM Respiratory: no wheezing, no rales, no rhonchi, clear to auscultation bilateral Cardiovascular: RRR, no rub systolic murmur noted Gastrointestinal: soft, no distention, positive bowel sounds Mildly tender to palpation incision sites intact. No redness or drainage noted. No swelling noted Neurological: non-focal Psychiatric: normal affect Deviation from normal: Pt has dementia, did not answer questions Skin: no rash <Phil Cody - Last Filed: 07/25/17 08:46> Dx/Plan (1) Colon cancer Code(s): C18.9 - MALIGNANT NEOPLASM OF COLON, UNSPECIFIED Status: Suspected (2) GI bleed Code(s): K92.2 - GASTROINTESTINAL HEMORRHAGE, UNSPECIFIED Status: Acute (3) Iron deficiency anemia Code(s): D50.9 - IRON DEFICIENCY ANEMIA, UNSPECIFIED Status: Acute (4) Dementia Code(s): F03.90 - UNSPECIFIED DEMENTIA WITHOUT BEHAVIORAL DISTURBANCE Status: Acute (5) HTN (hypertension) Code(s): I10 - ESSENTIAL (PRIMARY) HYPERTENSION Status: Chronic (6) MARGARITA (acute kidney injury) Code(s): N17.9 - ACUTE KIDNEY FAILURE, UNSPECIFIED Status: Resolved - Plan Plan: Suspected Colon cancer -Awaiting bx of cecal mass path reports -CT abdo/pelvis: 7 cm complex cecal mass consistent w/ reported hx of colon cancer -Post op R. hemicolectomy- minimal pain. -General Surgery Consulted- Dr. Gresham- appreciate recs -WBC count trending up. No fevers noted at time. Is post op. Incision site clean and no sign of infection. continue to monitor. Likely due to being post op. GI Bleed -GI Case- appreciate recs. EGD: normal Colonoscopy: cecal mass, awaiting bx. 2 ascending polyps, awaiting bx path -General Surgery- Dr. Gresham -Hgb 8.3 down from 8.7. Continue to monitor. Tranfused 1 unit 07/22 Iron Deficiency Anemia -Hgb 8.3 likely 2/2 to problem above -Ferritin low normal. -Will supplement with iron at this time. -Plan as above Dementia -continue home meds HTN -hold lisinopril. BP stable MARGARITA -Resolved as of now <Phil Cody - Last Filed: 07/25/17 08:46> Attending Addendum - Attending Addendum I personally evaluated the patient and discussed the management with Dr. Cody. I agree with the History, Examination, Assessment and Plan documented above with any addition or exceptions noted below. Patient POD #1 from laproscopic Right hemicolectomy and reanastamosis. Pain well controlled. H&H stable. Awaiting pathology. Will await surgery's recommendations. <Giovany Vargas - Last Filed: 07/25/17 10:00>
[2017-07-25] MEDS: Pantoprazole 40 MG VIAL IVP SCH (09:39)
[2017-07-25] MEDS: Famotidine/PF 20 mg/2ml Vial SLOW IVP SCH (09:39)
[2017-07-25] MEDS: Famotidine 20 MG TAB PO SCH ×2 (10:26→20:42)
[2017-07-25] MEDS: Sodium Chloride 0.9% 1,000 ML IV SCH (12:21)
--- NOTE | 2017-07-25 14:30 | PRG ---
DATE OF SERVICE: 07/25/2017 SUBJECTIVE: Ms. 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 She is in the Intermediate Care Unit secondary to postoperative hy perglycemia. She was maintained on the insulin drip protocol. She has weaned off of that uneventfu lly and has been on no insulin for the past several hours and she has required 2 units of insulin in total over the past 6 hours. She has no complaints. She notes only minor discomfort. She has required no narcotics. She is com plaining of hunger. She has ambulated on the floor. Her Espinal catheter has been removed and she walter s voided. There have been no episodes of nausea or vomiting. SUBJECTIVE: VITAL SIGNS: Reveal that she is afebrile. Pulse is between 57 and 69, blood pressure 143/74. Her urine output overnight was 675 mL. GENERAL: She is alert, cooperative and conversant (in Slovenian). She is in no acute distress and de nies pain. LUNGS: Clear to auscultation. CARDIAC: Regular rate and rhythm. ABDOMEN: Soft with minimal tenderness. Laparoscopic incisions are all nicely healed with minimal t enderness. Dermabond is intact. Bowel sounds are present and normoactive. EXTREMITIES: Unremarkable. ASSESSMENT: The patient is doing very well following her laparoscopic right hemicolectomy. Her hanh ctive hyperglycemia appears to have resolved appropriately and she is stable for transfer to the [facility] or. She will continue with q.6 hour Accu-Cheks and sliding scale insulin. She will continue clear liquids today and advanced to a soft tomorrow. I anticipate she will be ready for discharge tomorro w. Since she is somewhat anemic with hemoglobin of 8.3 (it was 9.3 preoperatively), I will recheck a CBC tomorrow. Additionally, it is noted that her CEA level was 14 preoperatively, so this will be followed in the postoperative period appropriately. I will want to see her in my office for a foll owup visit in 2 weeks after her discharge.
[2017-07-25] MEDS ORDERED: Insulin Regular 300 UNITS/3 ML VIAL SC PRN (14:39)
[2017-07-25 16:07] VITALS: BMI 23.5
[2017-07-25] MEDS: Enoxaparin Sodium 40 MG/0.4 ML SYRINGE SC SCH (20:43)
[2017-07-26] MEDS: Ketorolac Tromethamine 30 MG/ML VIAL IVP SCH ×3 (04:13→15:50)
[2017-07-26 05:43] LABS: #Basophils 0.1 thou/uL (0.0-0.2); #Eosinphils 0.2 thou/uL (0.0-0.7); #Lymphocytes 1.8 thou/uL (1.20-3.40); #Monocytes 0.4 thou/uL (0.11-0.59); #Neutrophils 6.1 thou/uL (1.40-6.50); %Basophils 0.7 % (0.0-1.0); %Eosinophils 1.8 % (0.0-10.0); %Lymphocytes 21.4 % (21.0-51.0); %Monocytes 4.4 % (0.0-10.0); Hematocrit 22.6 % (36.0-47.0); Mean Platelet Volume 7.9 fL (7.4-10.4); Red Blood Cell (RBC) Count 2.62 mill/uL (4.20-5.40); White Blood Cell (WBC) Count 8.5 thou/uL (4.8-10.8)
--- NOTE | 2017-07-26 05:57 | PDOC.FM ---
- Subjective Subjective: Pt and family resting when I entered the room. Pt denies any problems to the family members. Daughter in law says she has been tolerating diet and peeing. Denies a BM at this time. Denies any fever chills, sob. Reports minimal pain in abdomen area. All the history was obtained from daughter in law who communicated with the patient - Objective Vital Signs & Weight: Vital Signs (12 hours) Temp Pulse Resp BP Pulse Ox 07/26/17 04:00 98.6 F 78 20 150/54 H 96 07/25/17 23:38 98.4 F 76 20 129/62 94 L 07/25/17 19:33 97.5 F L 58 L 18 97 07/25/17 19:00 98.4 F 87 20 157/85 H 94 L Weight Admit Weight 55.338 kg Weight 56.472 kg I&O: 07/24/17 07/25/17 07/26/17 06:59 06:59 06:59 Intake Total 1800 468 750 Output Total 1100 675 800 Balance 700 -207 -50 Result Diagrams: 07/26/17 04:53 07/25/17 05:22 Radiology Reviewed by me: Yes Radiology: CTA 07/23: 7 cm complex cecal mass w/ suspicion for extraserosal spread of tumor beyond the margins of cecal wall. Mildly prominent R. lower quad ileocecal mesenteric lymph nodes. No other evidence of spread. Abdo Xray 07/21: unremarkable Phys Exam - Physical Examination HEENT: PERRLA, moist MMs, oral pharynx no lesions Neck: no nodes, no JVD, supple, full ROM Respiratory: no wheezing, no rales, no rhonchi, clear to auscultation bilateral Cardiovascular: RRR, no rub Systolic murmur noted Gastrointestinal: soft, no distention, positive bowel sounds mildly tender. Incision sites intact. Some redness noted. Minimal swelling No drainage noted. Musculoskeletal: no edema, pulses present Neurological: non-focal Lymphatic: no nodes Psychiatric: normal affect Deviation from normal: Pt demented, does not answer my questions directly Skin: no rash, normal turgor Dx/Plan (1) Colon cancer Code(s): C18.9 - MALIGNANT NEOPLASM OF COLON, UNSPECIFIED Status: Suspected Qualifiers: Qualified Code(s): C18.2 - Malignant neoplasm of ascending colon (2) GI bleed Code(s): K92.2 - GASTROINTESTINAL HEMORRHAGE, UNSPECIFIED Status: Acute (3) Iron deficiency anemia Code(s): D50.9 - IRON DEFICIENCY ANEMIA, UNSPECIFIED Status: Acute (4) Dementia Code(s): F03.90 - UNSPECIFIED DEMENTIA WITHOUT BEHAVIORAL DISTURBANCE Status: Acute (5) HTN (hypertension) Code(s): I10 - ESSENTIAL (PRIMARY) HYPERTENSION Status: Chronic (6) MARGARITA (acute kidney injury) Code(s): N17.9 - ACUTE KIDNEY FAILURE, UNSPECIFIED Status: Resolved - Plan Plan: Cecal Mass- Invasive Adenocarcinoma -Cecal mass bx- Invasive Adenocarcinoma -Awaiting surgical path -CT abdo/pelvis: 7 cm complex cecal mass consistent w/ reported hx of colon cancer -Post op R. hemicolectomy- minimal pain. -General Surgery Consulted- Dr. Gresham- appreciate recs -WBC count trending down. No fevers noted at time. -Post Op day 2. Incision site clean and no sign of infection. continue to monitor. Likely due to being post op. -Advanced to Soft diet, tolerating diet so far. Possibly home today. Will await instructions from General Surgery GI Bleed -GI Case- appreciate recs. EGD: normal Colonoscopy: cecal mass, awaiting bx. 2 ascending polyps, awaiting bx path -General Surgery- Dr. Gresham -Hgb down to 7.3. May want to re check H/H and possibly transfuse if below 7. Tranfused 1 unit 07/22 Iron Deficiency Anemia -Hgb 7.3likely 2/2 to problem above -Ferritin low normal. -Will supplement with iron at this time. -Plan as above Dementia -continue home meds HTN -Possibly start lisinopril. BP a little elevated MARGARITA -Resolved as of now
[2017-07-26 06:06] LABS: Anion Gap 11 mmol/L (10-20); BUN (Urea Nitrogen) 12 mg/dL (9.8-20.1); Calc. Creatinine Clearance 43 mL/min (70-130); Carbon Dioxide 21 mmol/L (23-31); Chloride 113 mmol/L (98-107); Estimated GFR-MDRD 60
[2017-07-26 08:07] VITALS: TEMP 98.3
[2017-07-26] MEDS: Famotidine 20 MG TAB PO SCH (08:56)
[2017-07-26] MEDS: Sodium Chloride 0.9% 1,000 ML IV SCH (09:04)
--- NOTE | 2017-07-26 10:59 | DIS ---
DATE OF ADMISSION: 07/21/2017 DATE OF DISCHARGE: 07/26/2017 ADMIT DIAGNOSES: Lower gastrointestinal bleed, cecal mass, diabetes mellitus, aortic sclerosis, dem entia, and hypertension. DISCHARGE DIAGNOSES: Lower gastrointestinal bleed, cecal mass, diabetes mellitus, aortic sclerosis, dementia, and hypertension. PROCEDURES: Colonoscopy by Dr. Escoto and biopsied, laparoscopic da Lobo right colectomy by Dr. Mario valente without complication. CONDITION AT DISCHARGE: Improved. STAFF: Family Practice plus Dr. Gresham. HOSPITAL COURSE: On 07/26/2017, patient is doing well, tolerating the full liquid diet. She is pas sing gas, not had a bowel movement yet. Hemoglobin trending down to upper 7, started at 9, but she is hemodynamically stable. She is stable for discharge. Follow up with Dr. Gresham in 2 weeks.
[2017-07-26 12:45] VITALS: BP 162/70
--- NOTE | 2017-07-26 19:51 | ADD-PRG ---
ADDENDUM: 07/26/2017 Please see the note done by Dr. Cody for which I concur. The patient was seen, evaluated, and exa mined and discussed with the residents. The patient is postop day I believe #2-3 and doing phenomen ally well after colectomy for colon cancer and can be discharged with outpatient follow up with both Surgery and Oncology.
--- NOTE | 2017-07-27 16:44 | DIS-2 ---
DATE OF ADMISSION: 07/21/2017 DATE OF DISCHARGE: 07/26/2017 ADMITTING ATTENDING: Dr. Pili Plasencia. DISCHARGE ATTENDING: Dr. Leon Garcia. RESIDENT: Phil Cody M.D., PGY1. CONSULTATIONS: General Surgery, Dr. Gresham; and Dr. Charles with GI. PROCEDURES: During this visit were colonoscopy on 07/23/2017 and a right hemicolectomy reanastomosed on 07/24/2017. DIAGNOSES: 1. Invasive adenocarcinoma. 2. Gastrointestinal bleed. 3. Iron deficiency anemia. 4. Dementia. 5. Hypertension. 6. Acute kidney injury. DISCHARGE MEDICATIONS: Include Zoloft 25 mg and Ultram 50 mg. DISCONTINUED MEDICATIONS: Include acidophilus. HISTORY OF PRESENT ILLNESS AND BRIEF HOSPITAL COURSE: This is an 81-year-old female who came in with reports of having some weakness over the last few months and then having GI bleed noticed in diaper in the car. Upon admission, her hemoglobin was low around 8; the next day, her hemoglobin had dropped down to 7.0. At this time, we transfused her with 1 unit of blood. Consulted GI, Dr. Charles. On the , Dr. Charles did an EGD, in which he noted a cecal mass and some ascending polyps, which he did for a biopsy. Dr. Charles, at this time, got a CT of the abdomen, which showed a 7-cm complex cecal mass consistent with reported history of colon cancer. Internal immediate density component may be necrotic tumor, concomitant superimposed abscess cannot be excluded, and then final report said there is large mixed density cecal mass measuring 7.5 x 6.7 cm. There is concern that there was mass extension beyond the serosal margin of the cecum on image 46 of series 2. There is reticulation of the surrounding retroperitoneal fat within this location. There is an enlarged right ileocecal lymph node measuring 7 mm. No retroperitoneal lymphadenopathy is evident. There is mildly prominent right lower quadrant ileocecal mesenteric lymph nodes. No additional evidence of regional spread of disease to the abdomen and pelvis. At this time, Dr. Vargas contacted Dr. Gresham with General Surgery. On the , Dr. Gresham did a right hemicolectomy and the surgical specimen sent to pathology and that is still pending. We did get the pathology on the cecal mass biopsy from the colonoscopy. Cecal mass biopsy showed invasive adenocarcinoma. The ascending polyps showed severe adenoma. At this time, on the , the patient was advanced to clear liquid diet, was tolerating well, and was tolerating pain very well. She was up and moving around. Her hemoglobin on the was low from 8.7, on it was 8.3, and then on the it went to 7.4. She was then advanced to soft diet, which she tolerated very well. Per Dr. Gresham' recommendations, he thought that the patient was hemodynamically stable and was fit to go home. She had not had a bowel movement yet, but was passing gas, was having good bowel sounds on auscultation. He said that she was stable at discharge and would follow up with him. DISPOSITION: Guarded. She does have invasive adenocarcinoma with possible metastatic to the ileocecal area lymph nodes. DISCHARGE INSTRUCTIONS: 1. Location: Home. 2. Activity: As tolerated. 3. Diet: As tolerated, Soft diet likely to be advanced to regular. 4. Followup: She will follow up with Dr. Gresham in two weeks and will want to follow up with her primary care physician, Dr. Galicia, within 2 weeks. MIRIAM
--- NOTE | 2017-07-27 20:48 | OP ---
DATE OF PROCEDURE: 07/24/2017 PREOPERATIVE DIAGNOSIS: Right colon cancer. POSTOPERATIVE DIAGNOSIS: Right colon cancer. OPERATION PERFORMED: Hand-assisted laparoscopic right hemicolectomy, resection of right fallopian t ube. SURGEON: Dr. Daniel Gresham. ANESTHESIA: General endotracheal. INDICATIONS: The patient is an 81-year-old female. She presented to the hospital with rec ent history of blood per rectum. She was noted to be anemic and underwent colonoscopy revealing an ulcerated lesion within the cecum. She is taken to the operating room the day following her colonos copy to avoid repeat bowel prep. CT scan reveals no evidence of metastatic disease to the liver, al though there is a suggestion of a mesenteric lymphadenopathy. CEA level is markedly elevated at 14. OPERATIVE PROCEDURE IN DETAIL: Informed consent was obtained. The patient was taken to the operati ng room where general endotracheal anesthesia was obtained with the patient in supine position. Abd omen was prepped with ChloraPrep and draped in sterile fashion. Warming blankets were placed both a fariha and below to optimize normothermia. Espinal catheter was of course placed. Local anesthetic was infiltrated using 1% lidocaine with epinephrine (Marcaine had been utilized and placement of her TA P block preoperatively). A 5 mm left upper quadrant incision was created through which a Veress nee dle was passed into the peritoneal cavity and pneumoperitoneum established using carbon dioxide up t o a pressure of 15 mmHg. A 5 mm trocar port was passed through this same incision. Laparoscopic ca jazlyn was passed through this port. Under direct vision, an additional 5 mm left lower quadrant port was placed. The area of the malignancy was identified as well as the transverse colon. I selected a site for the extraction incision in the right upper abdomen. An 8 cm oblique incision was create d and muscle splitting technique were used to gain access into the abdominal cavity. The Rudy clareu nd retractor was placed along with the GelPort. The patient's malignancy was easily palpable and appeared to be infiltrating the lateral abdominal w all. I could not mobilize the colon in order to stretch the mesenteric vessels and I therefore deci ded to mobilize the malignancy in a lateral to medial fashion. We began dissection at the level of the distal ileum. The retroperitoneum was incised and a lateral to medial mobilization was performe d staying beyond the area of the indurated malignancy. This was elevated in a lateral to medial fas hion. Care was taken to avoid injury to the underlying ureter. The hepatic flexure was identified and mobilized. All mobilization was carried out using the LigaSure device. I dissected the omentum off the proximal half of the transverse colon. After I gained adequate mobility, the cecum was ret racted. I was able to identify the ileocolic vessels. These were dissected circumferentially and d ivided using the LigaSure device close to their origin at the superior mesenteric artery. The right colon was then mobilized out through the Rudy wound retractor to complete the operation extracorporeally. The remainder of the small bowel mesentery was divided using the LigaSure as was the mesentery of the proximal transverse colon. A double-stapled anastomosis was created between th nadia two areas using a SVETLANA-75 stapler. There was no contamination during the course of the anastomos is. The anastomosis was closed and the specimen was removed from the field. All instruments as wel l as cautery, suctioning and gloves were changed. The anastomosis was then buttressed with 3-0 silk sutures. The mesenteric defect was closed using 3-0 Vicryl. The operation was then completed laparoscopically. I again inspected the liver without finding of m alignancy. I irrigated the right side of the abdomen and all irrigant was aspirated. There was no evidence of any substantial blood loss anywhere within the abdomen. Not mentioned earlier is that t he right fallopian tube had been involved with the malignancy and this was transected. The fallopia n tube stump was inspected and found to be hemostatic. There were no other pelvic abnormalities and there was no evidence of any residual malignancy anywhere within the abdomen. The ports were remov ed under direct vision. Pneumoperitoneum was carefully evacuated. The abdominal wall was thoroughl y cleansed of all blood and all laparoscopic instruments were removed. Clean towels were placed jeff und the abdomen. Gowns and gloves were changed by all involved personnel. The fascia was closed an d the right-sided abdominal incision in two layers using running suture of #1 PDS. The wound was th en thoroughly irrigated using the laparoscopic irrigation device. The remainder of the wound was cl osed in layers with 3-0 and 4-0 Monocryl suture. Dermabond was placed externally. The other port s ites were closed with 4-0 Monocryl suture and Dermabond. There were no complications. Blood loss w as negligible. The patient tolerated the procedure well and was taken to recovery room in stable co ndition.
== END 2017-07-26 16:09 | disposition home or self-care (01) | DRG 330 ==
LOC: T4-A 18:14 → IMCU/EMU 07-24 16:59 → SURG B 07-26 11:40
PROVIDERS: ADMIT Family Medicine; ATTEND Family Medicine
PROC: 30233N1 Transfusion of Nonautologous Red Blood Cells into Peripheral Vein, Percutaneous Approach (ICD-10-PCS; 2017-07-22)
PROC: 0DTF4ZZ Resection of Right Large Intestine, Percutaneous Endoscopic Approach (ICD-10-PCS; principal; 2017-07-24)
PROC: 0UT54ZZ Resection of Right Fallopian Tube, Percutaneous Endoscopic Approach (ICD-10-PCS; 2017-07-24)
PROC: 0DBH8ZX Excision of Cecum, Via Natural or Artificial Opening Endoscopic, Diagnostic (ICD-10-PCS; 2017-07-24)
PROC: 0DBH8ZX Excision of Cecum, Via Natural or Artificial Opening Endoscopic, Diagnostic (ICD-10-PCS; 2017-07-24)
PROC: 0DJ08ZZ Inspection of Upper Intestinal Tract, Via Natural or Artificial Opening Endoscopic (ICD-10-PCS; 2017-07-24)
DX: C18.2 Malignant neoplasm of ascending colon (principal); K92.2 Gastrointestinal hemorrhage, unspecified; N17.9 Acute kidney failure, unspecified; C77.2 Secondary and unspecified malignant neoplasm of intra-abdominal lymph nodes; D62 Acute posthemorrhagic anemia; I10 Essential (primary) hypertension; E11.65 Type 2 diabetes mellitus with hyperglycemia; I70.0 Atherosclerosis of aorta; G30.9 Alzheimer's disease, unspecified; F02.80 Dementia in other diseases classified elsewhere, unspecified severity, without behavioral disturbance, psychotic disturbance, mood disturbance, and anxiety; Z87.81 Personal history of (healed) traumatic fracture; Z80.0 Family history of malignant neoplasm of digestive organs; Z80.8 Family history of malignant neoplasm of other organs or systems
CPT/HCPCS: 36415; 36416; 36430; 74000; 74177; 80048; 80053; 81003; 82274; 82378; 82728; 83036; 83540; 83550; 85025; 86850; 86900; 86901; 87086; 88305; 88309; 88342; 93005; 93010; A4216; C9113; G8978-GP-CJ; G8979-GP-CJ; G8980-GP-CJ; J0670; J0694; J1100; J1815; J1885; J2001; J2250; J2270; J2405; J2704; J3010; J7050; P9016; S0028

== ENCOUNTER 2018-06-12 11:57 | Day surgery (SDC) | payer MEDICARE, MEDICAID ==
[2018-06-12] MEDS ORDERED: Acetaminophen 500 MG TAB PO SCH (12:30)
[2018-06-12] MEDS ORDERED: Iron Sucrose Complex 250 MG in Sodium Chloride 0.9% 250 ML 250 ML IVPB SCH (12:30)
[2018-06-12 16:31] VITALS: BP 115/53; TEMP 98.3
== END 2018-06-12 16:51 | disposition home or self-care (01) ==
LOC: ONC/OP 11:57
PROVIDERS: ATTEND Family Medicine
DX: K90.89 Other intestinal malabsorption (principal); Z79.899 Other long term (current) drug therapy
CPT/HCPCS: 96365; 96366; J1756; J7050

== ENCOUNTER 2018-12-27 19:22 | Emergency (ER) | payer MEDICARE, OTHER ==
--- NOTE | 2018-12-27 20:14 | RAD ---
RIGHT HUMERUS TWO VIEWS: History: Fall. Pain. Comparison: None. FINDINGS: Obliquely oriented, one-shaft width displaced humeral diaphyseal fracture. Irregularity of the scapula. Possibility of scapular fracture cannot be excluded. IMPRESSION: 1. Possible scapular fracture. 2. Humerus diaphyseal fracture. POS: PPP
[2018-12-27] MEDS ORDERED: Morphine 2 MG/ML SYRINGE ONE (20:21)
[2018-12-27] MEDS ORDERED: Promethazine HCl 25 MG/ML VIAL ONE ×2 (20:21→20:25)
--- NOTE | 2018-12-27 21:50 | CT ---
CT CERVICAL SPINE WITHOUT CONTRAST: History: Fall, dementia. Comparison: None. FINDINGS: No craniocervical disassociation. Lateral masses of C1 and C2 as well as the facets articulate approp riately. Intact odontoid process. Soft tissue neck structures, upper mediastinum and lung apices are unremarkable. Central spinal canal and neural foramina are patent. Varying degrees of central canal stenosis and fo raminal narrowing on the basis of degenerative change. There is multilevel facet hypertrophy. Cervical spine vertebral body height is maintained. There is no fracture. IMPRESSION: No cervical spine fracture. POS: [facility]
--- NOTE | 2018-12-27 21:52 | CT ---
HEAD CT WITHOUT CONTRAST: History: Fall, dementia. Comparison: 11-04-16 FINDINGS: No parenchymal hemorrhage. No extraaxial hematoma. No midline shift. Basilar cisterns are patent. Age appropriate atrophy. Cortical lucas white matter differentiation is preserved. No evidence of hydrocephalus. Chronic small vessel ischemic changes of the white matter identified. Intact calvarium. Adequate aera tion of the sinuses and mastoid air cells. IMPRESSION: No intracranial post-traumatic sequellae. POS: [facility]
--- NOTE | 2018-12-27 23:09 | CT ---
CT CHEST WITHOUT CONTRAST: History: Right arm pain. Comparison: Radiograph same day. FINDINGS: There is incomplete evaluation of the known proximal humeral diaphyseal fracture. No glenohumeral dis location. No scapular fracture. The visualized ribs are without complete fracture. Lungs are clear. No pericardial effusion. Sternum and manubrium are intact. IMPRESSION: 1. No scapular fracture. 2. No acute post-traumatic intrathoracic sequellae. 3. Mild cardiomegaly. 4. Incompletely evaluated humeral fracture. 5. Old right lateral 5th rib fracture. POS: [facility]
== END 2018-12-27 23:23 | disposition home or self-care (01) ==
LOC: ERS 19:22
DX: S42.331A Displaced oblique fracture of shaft of humerus, right arm, initial encounter for closed fracture (principal); I10 Essential (primary) hypertension; F03.90 Unspecified dementia, unspecified severity, without behavioral disturbance, psychotic disturbance, mood disturbance, and anxiety; G30.9 Alzheimer's disease, unspecified; F02.80 Dementia in other diseases classified elsewhere, unspecified severity, without behavioral disturbance, psychotic disturbance, mood disturbance, and anxiety; Z79.899 Other long term (current) drug therapy; W18.30XA Fall on same level, unspecified, initial encounter
CPT/HCPCS: 29105; 70450; 71250; 72125; 93005; 96372; J2270; J2550

== ENCOUNTER 2019-01-02 09:55 | Emergency (ER) | payer MEDICARE, OTHER ==
--- NOTE | 2019-01-02 10:52 | RAD ---
RIGHT HUMERUS 2 VIEWS: Date: 01/02/19 HISTORY: Right arm injury. Ongoing pain. COMPARISON: 12/27/18. FINDINGS: Extensively comminuted fracture of the humeral shaft with full shaft width medial displacement of the major distal fragment and apex lateral angulation is unchanged in alignment from the previous exam. Overlying splint is in place. No significant periosteal reaction or callus formation. Internal rotati on is apparent. IMPRESSION: No significant healing of the humeral fracture evident. Stable radiographic appearance. POS: [facility]
== END 2019-01-02 11:09 | disposition home or self-care (01) ==
LOC: ERS 09:55
DX: S42.351A Displaced comminuted fracture of shaft of humerus, right arm, initial encounter for closed fracture (principal); G30.9 Alzheimer's disease, unspecified; F02.80 Dementia in other diseases classified elsewhere, unspecified severity, without behavioral disturbance, psychotic disturbance, mood disturbance, and anxiety; Z79.899 Other long term (current) drug therapy; W19.XXXA Unspecified fall, initial encounter

== ENCOUNTER 2019-09-13 09:47 | Inpatient (IN) | payer MEDICARE, MEDICAID ==
[2019-09-10 12:47] VITALS: BMI 27.3
[2019-09-13] MEDS ORDERED: Lidocaine 1% PF 5 ML VIAL ONE (10:45)
[2019-09-13] MEDS ORDERED: Dexamethasone 20 MG/5 ML VIAL ONE (10:45)
[2019-09-13] MEDS ORDERED: ePHEDrine/0.9% NaCl/PF SYRINGE 50 mg/10 ml ONE (10:45)
[2019-09-13] MEDS ORDERED: Ondansetron PF 4 MG/2 ML Vial ONE (10:45)
[2019-09-13] MEDS ORDERED: Rocuronium Bromide 10 MG/ML (10ML VIAL) ONE (10:45)
[2019-09-13] MEDS ORDERED: PROPOFOL 200 MG/20 ML VIAL ONE (10:45)
[2019-09-13 11:35] LABS: #Eosinphils 0.3 thou/uL (0.0-0.7); #Monocytes 0.4 thou/uL (0.11-0.59); #Neutrophils 3.2 thou/uL (1.40-6.50); %Basophils 0.7 % (0.0-1.0); %Eosinophils 4.9 % (0.0-10.0); %Lymphocytes 33.4 % (21.0-51.0); %Monocytes 7.1 % (0.0-10.0); Hemoglobin 13.5 g/dL (12.0-16.0); Mean Corpuscular HGB CONC 34.4 g/dL (32.0-36.0); Mean Corpuscular Hemoglobin 30.7 pg (27.0-31.0); Mean Corpuscular Volume 89.4 fL (78.0-98.0); Mean Platelet Volume 7.4 fL (7.4-10.4); Platelet Count 214 thou/uL (130-400); RBC Distribution Width 12.4 % (11.5-14.5); Red Blood Cell (RBC) Count 4.39 mill/uL (4.20-5.40)
[2019-09-13 11:43] LABS: Anion Gap 13 mmol/L (10-20); BUN (Urea Nitrogen) 16 mg/dL (9.8-20.1); Calc. Creatinine Clearance 45 mL/min (70-130); Calcium 9.9 mg/dL (7.8-10.44); Carbon Dioxide 25 mmol/L (23-31); Chloride 104 mmol/L (98-107); Estimated GFR-MDRD 57; Glucose 92 mg/dL (83-110); Potassium 4.7 mmol/L (3.5-5.1); Sodium 137 mmol/L (136-145)
[2019-09-13] MEDS ORDERED: Fentanyl 100 MCG/2 ML VIAL ONE (12:24)
[2019-09-13] MEDS ORDERED: Bupivacaine HCl 0.5%/Epinephrine 1:200,000/PF 30 ml Vial ONE (13:28)
[2019-09-13] MEDS ORDERED: Fentanyl 100 MCG/2 ML VIAL SLOW IVP PRN (15:25)
[2019-09-13] MEDS ORDERED: Acetaminophen 325 MG TAB PO PRN (15:25)
[2019-09-13] MEDS ORDERED: traMADol HCl 50 MG TAB PO PRN (15:25)
[2019-09-13] MEDS ORDERED: Milk Of Magnesia 30 ML UDCUP PO PRN (15:25)
[2019-09-13] MEDS ORDERED: Ondansetron PF 4 MG/2 ML Vial IV PRN (15:25)
--- NOTE | 2019-09-13 15:27 | RAD ---
Exam:Exam: Intraoperative fluoroscopy HISTORY: ORIF right humerus fracture Exposure: 25.8 seconds. 1.19 mm COMPARISON: 01/02/2019 FINDINGS: 5 fluoroscopic views demonstrate 2 separate internal fixation plates. There is evidence of fracture lucency with extensive heterotopic bone formation. IMPRESSION: Intraoperative fluoroscopy as above.
[2019-09-13] MEDS ORDERED: Communication Order-Pharmacy FS SCH (15:30)
[2019-09-13] MEDS ORDERED: QUEtiapine Fumarate ER 50 MG TAB PO SCH (21:00)
[2019-09-13] MEDS: CEFAZOLIN 2 GM in Premix Bag 1 BAG IVPB SCH (21:03)
--- NOTE | 2019-09-13 22:10 | OP ---
DATE OF PROCEDURE: 09/13/2019 PROCEDURE PERFORMED: Open reduction and internal fixation of right humeral shaft nonunion. 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 POSTOPERATIVE DIAGNOSIS: Chronic nonunion of right humerus. COMPLICATIONS: None. ESTIMATED BLOOD LOSS: 150 mL. STATISTICAL SECRETARY: David Palencia PA-C IMPLANT: Synthes metaphyseal 10-hole plate, as well as a 10-hole 3.5 mm plate was utilized. INDICATIONS: Ms. Marinelli is an 83-year-old female, who fell and fractured her right humerus. She was treated nonoperatively for many months. Unfortunately, she developed nonunion and had increasing dysfunction and pain. She was indicated for open reduction and internal fixation at this point to hopefully restore the ability to heal and stabilize her fracture. The risks have been reviewed in detail. She has elected to proceed with the operation. DESCRIPTION OF PROCEDURE: Ms. Marinelli was identified in the preoperative holding area. Her correct extremity was marked. She was carried to the operating room. She was positioned supine. General anesthesia was induced. A multidisciplinary time-out was performed. The right upper extremity was prepped and draped in sterile fashion. We began the procedure with anterolateral approach to the humerus, extending this proximally up into the deltopectoral interval. We dissected down through the subcutaneous tissues and split the brachialis muscle. This brought us down onto the fracture site. There was a large amount of fibrous tissue and scar tissue. There was some early callus formation. There was obvious gross motion at the fracture site. We worked more proximally exposing the proximal bone under the deltoid muscle and into the interval of the deltopectoral muscles. We worked distally as well. At this point, we began debridement of the nonunion. We removed fibrous tissue, exposed the bony edges and removed bony fragments. We used an oscillating saw to freshen the bony edges and smoothed these back to a flat surface. We contoured the bony edges using x-ray guidance to correct our alignment. We performed a wedge osteotomy proximally to correct the varus deformity from a butterfly fragment, which had healed in a varus position. At this point, we reduced nonunion back to its anatomic position with [id number] contact. We applied clamps to this. We then applied a lag screw to this. At this point, we applied a lateral metaphyseal plate and placed at least four screws proximally and distal to the fracture. We also placed an interfragmentary screw through the fracture site. We took x-ray images throughout this procedure. Next, at this point, we applied an anterior to posterior 3.5 plate with three screws proximally and three screws distally providing an orthogonal 90/90 construct. Again, we took x-ray images. We then thoroughly irrigated with copious lavage. At this point, we closed with 2-0 Vicryl, 0 Vicryl, and martha for the skin. A sterile dressing was applied. The patient was taken to the recovery room in good condition without complication. Job ID: [id number]
[2019-09-14] MEDS: CEFAZOLIN 2 GM in Premix Bag 1 BAG IVPB SCH (04:28)
[2019-09-14 05:14] LABS: #Lymphocytes 2.1 thou/uL (1.20-3.40); #Monocytes 0.6 thou/uL (0.11-0.59); %Basophils 0.5 % (0.0-1.0); %Eosinophils 0.4 % (0.0-10.0); %Neutrophils 68.1 % (42.0-75.0); Hemoglobin 10.7 g/dL (12.0-16.0); Mean Corpuscular HGB CONC 34.1 g/dL (32.0-36.0); Mean Corpuscular Hemoglobin 30.7 pg (27.0-31.0); Mean Corpuscular Volume 90.2 fL (78.0-98.0); Mean Platelet Volume 7.9 fL (7.4-10.4); Platelet Count 211 thou/uL (130-400); RBC Distribution Width 12.5 % (11.5-14.5); Red Blood Cell (RBC) Count 3.48 mill/uL (4.20-5.40); White Blood Cell (WBC) Count 8.8 thou/uL (4.8-10.8)
[2019-09-14] MEDS ORDERED: Prenatal Vitamin 1 TAB PO SCH (09:00)
[2019-09-14] MEDS ORDERED: Lisinopril 10 MG TAB PO SCH (09:00)
[2019-09-14] MEDS ORDERED: Ferrous Sulfate 325 MG TAB PO SCH (09:00)
[2019-09-14 09:04] VITALS: BP 140/62
[2019-09-14 09:49] VITALS: TEMP 99
--- NOTE | 2019-09-15 18:47 | EKG ---
Test Reason : PREOP Blood Pressure : / mmHG Vent. Rate : 056 BPM Atrial Rate : 056 BPM P-R Int : 132 ms QRS Dur : 082 ms QT Int : 464 ms P-R-T Axes : 028 007 020 degrees QTc Int : 447 ms Sinus bradycardia Otherwise normal ECG When compared with ECG of 27-DEC-2018 19:50, Premature ventricular complexes are no longer Present Confirmed by DR. Pallavi RODRÍGUEZ ([id number]) on 09/15/2019 6:46:22 PM Referred By: VITALIY Confirmed By:DR. Pallavi RODRÍGUEZ
== END 2019-09-14 10:49 | disposition home or self-care (01) | DRG 494 ==
LOC: SURG A 10:43
PROVIDERS: ADMIT Orthopaedic Surgery; ATTEND Orthopaedic Surgery
PROC: 0PSF04Z Reposition Right Humeral Shaft with Internal Fixation Device, Open Approach (ICD-10-PCS; principal; 2019-09-13)
DX: S42.321K Displaced transverse fracture of shaft of humerus, right arm, subsequent encounter for fracture with nonunion (principal); W19.XXXD Unspecified fall, subsequent encounter; F03.90 Unspecified dementia, unspecified severity, without behavioral disturbance, psychotic disturbance, mood disturbance, and anxiety; I10 Essential (primary) hypertension; Z79.899 Other long term (current) drug therapy; Z85.038 Personal history of other malignant neoplasm of large intestine; Z90.49 Acquired absence of other specified parts of digestive tract
CPT/HCPCS: 36415; 76000; 80048; 85025; 93005; 93010; C1713; J0131; J0670; J0690; J1100; J2001; J2405; J2704; J3010

== ENCOUNTER 2021-12-03 17:04 | Emergency (ER) | payer MEDICARE, MEDICAID ==
[2021-12-03 18:03] LABS: Bacteria/HPF 4+ HPF (None Seen); Bilirubin Negative (Negative); Blood, Urine Negative (Negative); Clarity Clear (Clear); Glucose, Urine (Dipstick) Normal (Negative); Ketone, Urine Negative (Negative); Leukocyte 75 Leu/uL (Negative); Nitrite Negative (Negative); Protein, Urine (Dipstick) Negative (Neg-Trace); RBC/HPF 0-3 HPF (0-3); Specific Gravity, Urine 1.011 (1.002-1.036); Squamous Epithelial None Seen HPF (0-3); Urobilinogen Normal mg/dL (Less than 2); pH, Urine 6.5 (5.0-9.0)
[2021-12-03 18:04] LABS: #Eosinphils 0.3 thou/uL (0.0-0.7); #Lymphocytes 1.7 thou/uL (1.20-3.40); #Monocytes 0.4 thou/uL (0.11-0.59); #Neutrophils 4.8 thou/uL (1.40-6.50); %Basophils 0.2 % (0.0-1.0); %Eosinophils 3.7 % (0.0-10.0); %Lymphocytes 23.5 % (21.0-51.0); %Neutrophils 66.6 % (42.0-75.0); Hemoglobin 13.2 g/dL (12.0-16.0); Mean Corpuscular HGB CONC 33.6 g/dL (32.0-36.0); Mean Corpuscular Hemoglobin 30.7 pg (27.0-31.0); Mean Corpuscular Volume 91.4 fL (78.0-98.0); Mean Platelet Volume 8.3 fL (7.4-10.4); Platelet Count 175 thou/uL (130-400); RBC Distribution Width 13.2 % (11.5-14.5); Red Blood Cell (RBC) Count 4.28 mill/uL (4.20-5.40); White Blood Cell (WBC) Count 7.1 thou/uL (4.8-10.8)
[2021-12-03 18:28] LABS: ALT (SGPT) 33 U/L (8-55); AST (SGOT) 54 U/L (5-34); Albumin 3.9 g/dL (3.4-4.8); Alkaline Phosphatase 142 U/L (40-110); Anion Gap 13 mmol/L (10-20); BUN (Urea Nitrogen) 16 mg/dL (9.8-20.1); Bilirubin, Total 0.5 mg/dL (0.2-1.2); Calc. Creatinine Clearance 0 mL/min (70-130); Calcium 9.4 mg/dL (7.8-10.44); Carbon Dioxide 24 mmol/L (23-31); Chloride 97 mmol/L (98-107); Globulin 4.1 g/dL (2.4-3.5); Glucose 99 mg/dL (83-110); Potassium 4.5 mmol/L (3.5-5.1); Sodium 129 mmol/L (136-145)
[2021-12-03] MEDS ORDERED: Nitrofurantoin Monohyd/M-Cryst 100 MG CAP PO SCH (19:00)
== END 2021-12-03 20:31 | disposition home or self-care (01) ==
LOC: ERS 17:04
DX: M25.551 Pain in right hip (principal); M79.651 Pain in right thigh; N39.0 Urinary tract infection, site not specified; I10 Essential (primary) hypertension; W18.30XA Fall on same level, unspecified, initial encounter
CPT/HCPCS: 36415; 51701; 70450; 72170; 80053; 81003; 81015; 83605; 85025; 87077; 87086; 87186

== ENCOUNTER 2021-12-13 12:48 | Outpatient (CLI) | payer MEDICARE, MEDICAID | END 2021-12-13 12:49 | disposition home or self-care (01) | LOC: CT 12:48 | PROVIDERS: ATTEND Student in an Organized Health Care Education/Training Program | DX: S72.001A Fracture of unspecified part of neck of right femur, initial encounter for closed fracture (principal); M43.16 Spondylolisthesis, lumbar region; M48.061 Spinal stenosis, lumbar region without neurogenic claudication; M53.86 Other specified dorsopathies, lumbar region | CPT/HCPCS: 72192 ==